=== PATIENT | female | born 1950 | race Caucasian/White ===

== ENCOUNTER → 2018-09-17 | Outpatient (CLI) | payer MEDICARE ==
[~2018-09-17] MED LIST: ACTOS 30 MG TAB30 MG PO; ASA81BEC PO; CELEXA 20 MG TA20 M1 PO; CENTRUM SILVER1 EAC1 PO; CIPROFLOXACIN500 M1 PO; CLONIDINE PO; DERMATOP60 GM TOP; DIOVAN 80 MG TA80 M1 PO; DIOVAN PO; FEXOFENADINE H180 MG PO; FLOMAX0.4 MG PO; FOSAMAX 70 MG T70 M1 PO; GLIPIZIDE ER10 MG PO; GLUCOPHAGE1000 MG PO; GLUCOSAMINE HC500 MG PO; KRILL OIL 3001 EACH PO; LANTUS SQ; LEVOTHYROXINE0.05 MG PO; MIDAMOR 5MG TABL5 M1 PO; OXYBUTYNIN 5 MG5 M1 PO; PERCOCET 10-321 EACH OR; PERCOCET 5-3251 EACH PO; TOUJEO SOL300 UNIT/1 SUBLING; VIT B12 PO; VITAMIN D-32000 UNIT PO; ZINC PO; ZOCOR20 MG PO; ZOFRAN4 MG PO
== END ==
LOC: M.RAD 13:00
DX: Z12.31 Encounter for screening mammogram for malignant neoplasm of breast (principal)

== ENCOUNTER → 2019-09-17 | Outpatient (CLI) | payer MEDICARE | LOC: M.RAD 14:35 | DX: Z12.31 Encounter for screening mammogram for malignant neoplasm of breast (principal) ==

== ENCOUNTER → 2020-09-08 | Outpatient (CLI) | payer MEDICARE | LOC: M.RAD 08-26 13:00 | PROVIDERS: ATTEND Family Medicine | DX: Z12.31 Encounter for screening mammogram for malignant neoplasm of breast (principal) ==

== ENCOUNTER 2021-06-19 20:38 | Emergency (ER) | payer MEDICARE ==
[~2021-06-19] VITALS: Ht 177.8 cm; Wt 117.5 kg
[2021-06-19] MEDS ORDERED: AMARYL2 M1 PO (21:04)
[2021-06-19] MEDS ORDERED: COZAAR 25 MG TA25 M1 PO (21:04)
[2021-06-19] MEDS ORDERED: DULOXETINE HCL60 MG PO (21:05)
[2021-06-19] MEDS ORDERED: OZEMPIC1 MG/0.75 SQ (21:05)
[2021-06-19] MEDS ORDERED: INDAPAMIDE2.5 MG PO (21:06)
[2021-06-19] MEDS ORDERED: AUGMENTIN 875-1 EACH PO (23:15)
[2021-06-19 23:22] VITALS: BP 144/82
== END 2021-06-19 23:25 | disposition home or self-care (01) ==
LOC: M.ERS 20:38
DX: S61.251A Open bite of left index finger without damage to nail, initial encounter (principal); I10 Essential (primary) hypertension; Q78.2 Osteopetrosis; E11.9 Type 2 diabetes mellitus without complications; Z90.89 Acquired absence of other organs; Z87.442 Personal history of urinary calculi; Z90.49 Acquired absence of other specified parts of digestive tract; Z79.899 Other long term (current) drug therapy; Z79.84 Long term (current) use of oral hypoglycemic drugs; W54.0XXA Bitten by dog, initial encounter; Y93.89 Activity, other specified; Y92.89 Other specified places as the place of occurrence of the external cause; Y99.8 Other external cause status

== ENCOUNTER → 2021-08-30 | Outpatient (CLI) | payer MEDICARE ==
[~2021-08-30] MED LIST changes: +AMARYL2 M1 PO; +AUGMENTIN 875-1 EACH PO; +COZAAR 25 MG TA25 M1 PO; +DULOXETINE HCL60 MG PO; +INDAPAMIDE2.5 MG PO; +OZEMPIC1 MG/0.75 SQ
== END ==
LOC: M.RAD 13:55
PROVIDERS: ATTEND Family Medicine
DX: Z12.31 Encounter for screening mammogram for malignant neoplasm of breast (principal)